=== PATIENT | female | born 1985 | race Two or more races ===

== ENCOUNTER 2021-07-05 23:49 | Emergency (ER) | payer MEDICAID, OTHER ==
[~2021-07-05] VITALS: Ht 162.6 cm; Wt 89.4 kg
[2021-07-06 01:48] LABS: Basophils # (auto) 0 10 ^3/uL (0-0.2); Basophils % (auto) 0.2 % (0.0-2.0); Eosinophils # (auto) 0 10 ^3/uL (0-0.8); Eosinophils % (auto) 0.3 % (0.0-7.0); Hematocrit 37.8 % (36.0-46.0); Hemoglobin 12.9 g/dL (12.2-16.2); Lymphocytes # (auto) 1.5 10 ^3/uL (0.4-5.4); Lymphocytes % (auto) 11.6 % (10.0-50.0); Mean Corpuscular Hemoglobin 29.2 pg (28.0-32.0); Mean Corpuscular Hgb Conc. 34.1 g/dL (32.0-36.0); Mean Corpuscular Volume 85.8 fL (80.0-100.0); Monocytes # (auto) 0.5 10 ^3/uL (0-1.3); Monocytes % (auto) 3.6 % (0.0-12.0); Neutrophils # (auto) 10.7 10 ^3/uL (1.6-8.6); Neutrophils % (auto) 84.3 % (37.0-80.0); Nucleated Red Blood Cells % 0.1 %; Red Cell Distribution Width 13.9 % (11.8-14.3); White Blood Cell 12.7 10^3/uL (4.4-10.8)
[2021-07-06 02:08] LABS: Albumin 3.7 g/dL (3.4-5.0); BUN/Creatinine Ratio 29.5; Potassium 4.7 mmol/L (3.5-5.1)
[2021-07-06 02:15] LABS: Bilirubin, Total 0.2 mg/dL (0.2-1.0)
[2021-07-06] MEDS ORDERED: MORPHINE SULFATE 4 MG/ML SYR/VIAL IV ONE (02:45)
[2021-07-06] MEDS ORDERED: ONDANSETRON HCL 4 MG/2 ML VIAL IV ONE (02:45)
[2021-07-06 03:32] LABS: Urine Bacteria FEW /hpf (None Seen); Urine Blood Negative /uL (Negative); Urine Specific Gravity 1.026 (1.001-1.035); Urine WBC 1 /hpf (0 - 5)
[2021-07-06 04:21] VITALS: BP 121/68
== END 2021-07-06 04:40 | disposition home or self-care (01) ==
LOC: ER 23:52
DX: R10.31 Right lower quadrant pain (principal); R10.11 Right upper quadrant pain; R11.2 Nausea with vomiting, unspecified; Z90.710 Acquired absence of both cervix and uterus
CPT/HCPCS: 36415; 74176; 80053; 81001; 83690; 84702; 85025; 96374; 96375; 99285; J2270; J2405

== ENCOUNTER 2022-06-09 20:28 | Emergency (ER) | payer MEDICAID ==
[~2022-06-09] VITALS: Ht 162.6 cm; Wt 92.2 kg
[2022-06-09 20:41] VITALS: BP 146/83
[2022-06-09 21:38] LABS: Basophils # (auto) 0 10 ^3/uL (0-0.2); Basophils % (auto) 0.2 % (0.0-2.0); Eosinophils # (auto) 0.2 10 ^3/uL (0-0.8); Eosinophils % (auto) 2.3 % (0.0-7.0); Hematocrit 39.7 % (36.0-46.0); Hemoglobin 13.4 g/dL (12.2-16.2); Lymphocytes # (auto) 2.8 10 ^3/uL (0.4-5.4); Lymphocytes % (auto) 29.5 % (10.0-50.0); Mean Corpuscular Hemoglobin 29.4 pg (28.0-32.0); Mean Corpuscular Hgb Conc. 33.7 g/dL (32.0-36.0); Mean Corpuscular Volume 87.1 fL (80.0-100.0); Monocytes # (auto) 0.6 10 ^3/uL (0-1.3); Monocytes % (auto) 6.2 % (0.0-12.0); Neutrophils % (auto) 61.8 % (37.0-80.0); Nucleated Red Blood Cells % 0.1 %; Red Blood Cells 4.56 10^6/uL (4.0-5.20); Red Cell Distribution Width 14.1 % (11.8-14.3); White Blood Cell 9.7 10^3/uL (4.4-10.8)
[2022-06-09 21:55] LABS: Albumin 3.8 g/dL (3.4-5.0); Calcium 9.4 mg/dL (8.5-10.1); Potassium 3.7 mmol/L (3.5-5.1)
[2022-06-09 22:01] LABS: BUN/Creatinine Ratio 35.5; Bilirubin, Total 0.2 mg/dL (0.2-1.0); Total Protein 8.6 g/dL (6.4-8.2)
== END 2022-06-10 05:23 | disposition home or self-care (01) ==
LOC: ER 20:28
DX: R79.89 Other specified abnormal findings of blood chemistry (principal); E86.0 Dehydration; Z90.710 Acquired absence of both cervix and uterus
CPT/HCPCS: 36415; 80053; 83690; 85025

== ENCOUNTER → 2023-11-02 | Outpatient (CLI) | payer MEDICAID ==
[~2023-11-02] VITALS: Ht 162.6 cm; Wt 83.9 kg
== END | disposition home or self-care (01) ==
LOC: Rad HDHVI 09:00
PROVIDERS: ATTEND Internal Medicine Cardiovascular Disease
DX: R00.1 Bradycardia, unspecified (principal); R06.02 Shortness of breath; R07.89 Other chest pain; R53.1 Weakness; R42 Dizziness and giddiness
CPT/HCPCS: 78452; 93017; 96374; A9500

== ENCOUNTER → 2023-11-21 | Outpatient (CLI) | payer MEDICAID | END | disposition home or self-care (01) | LOC: Rad HDHVI 12:35 | PROVIDERS: ATTEND Internal Medicine Cardiovascular Disease | DX: R06.02 Shortness of breath (principal) | CPT/HCPCS: 93306 ==

== ENCOUNTER → 2024-03-05 | Outpatient (CLI) | payer MEDICAID ==
[~2024-03-05] MED LIST: LACTCAP35 OR
[2024-03-05 10:15] VITALS: BP 131/83; PULSE 60; RESP 16; O2SAT 99
[2024-03-05 10:25] VITALS: BP 115/75; PULSE 62; RESP 16; O2SAT 99
--- NOTE | 2024-03-05 12:08 | DVH ---
EXAM: XY CHEST TWO VIEWS ROUTINE CLINICAL HISTORY: pain COMPARISON: None TECHNIQUE: Frontal and lateral view of the chest was obtained FINDINGS: Lines and Tubes: None Lungs: No focal consolidation. Pleura: No effusion. No pneumothorax. Cardiomediastinal contours: Unremarkable Bones: No acute osseous abnormality. IMPRESSION: No acute cardiopulmonary disease.
== END | disposition home or self-care (01) ==
LOC: Rad HDHVI 10:06
PROVIDERS: ATTEND Internal Medicine Cardiovascular Disease
DX: Z01.818 Encounter for other preprocedural examination (principal); R00.1 Bradycardia, unspecified
CPT/HCPCS: 71046; 93005; G0463

== ENCOUNTER 2024-03-08 06:54 | Day surgery (SDC) | payer MEDICAID ==
[2024-03-05 11:17] LABS: Basophils # (auto) 0 10 ^3/uL (0-0.2); Basophils % (auto) 0.4 % (0.0-2.0); Eosinophils # (auto) 0.1 10 ^3/uL (0-0.8); Eosinophils % (auto) 1.5 % (0.0-7.0); Hematocrit 39.3 % (36.0-46.0); Hemoglobin 13.3 g/dL (12.2-16.2); Lymphocytes # (auto) 1.7 10 ^3/uL (0.4-5.4); Lymphocytes % (auto) 22.5 % (10.0-50.0); Mean Corpuscular Hemoglobin 29.5 pg (28.0-32.0); Mean Corpuscular Hgb Conc. 33.8 g/dL (32.0-36.0); Mean Corpuscular Volume 87.2 fL (80.0-100.0); Monocytes # (auto) 0.4 10 ^3/uL (0-1.3); Monocytes % (auto) 4.8 % (0.0-12.0); Neutrophils # (auto) 5.3 10 ^3/uL (1.6-8.6); Neutrophils % (auto) 70.8 % (37.0-80.0); Platelet Count (auto) 299 10^3/uL (140-450); Red Blood Cells 4.51 10^6/uL (4.0-5.20); Red Cell Distribution Width 14.1 % (11.8-14.3); White Blood Cell 7.5 10^3/uL (4.4-10.8)
[2024-03-05 11:38] LABS: Alkaline Phosphatase 80 U/L (46-116); Anion Gap 7 (5-15); Blood Urea Nitrogen 9 mg/dL (9-23); Carbon Dioxide 25 mmol/L (20-31); Chloride 106 mmol/L (98-107); Glucose 97 mg/dL (74-106); Potassium 4.2 mmol/L (3.5-5.1); Sodium 138 mmol/L (136-145)
[2024-03-05 11:39] LABS: Aspartate Aminotransferase < 8 U/L (13-40)
[2024-03-05 11:40] LABS: Albumin 4.4 g/dL (3.2-4.8)
[2024-03-05 11:41] LABS: Alanine Aminotransferase 9 U/L (7-40); Bilirubin, Total 0.3 mg/dL (0.2-1.0); Total Protein 7.5 g/dL (5.7-8.2)
[2024-03-05 11:49] LABS: INR 1.03 (0.9-1.15); Prothrombin Time 10.9 sec (9.3-11.8)
[~2024-03-08] VITALS: Ht 162.6 cm; Wt 88.5 kg
[2024-03-08] MEDS ORDERED: VANCOMYCIN HCL 1000 MG VL ONE (09:29)
[2024-03-08] MEDS ORDERED: LIDOCAINE 2%HCL (LOCAL ANESTH.) INJ 20ML MDV ONE ×2 (09:29→10:04)
[2024-03-08] MEDS ORDERED: fentaNYL CITRATE 100 MCG/2 ML VL ONE (09:29)
[2024-03-08] MEDS ORDERED: MIDAZOLAM HCL 2MG/2ML 2ml VIAL (1mg/ml) ONE (09:29)
[2024-03-08] MEDS ORDERED: VANCOMYCIN 1GM/250ML KIT 250 ML IV ONE (09:29)
--- NOTE | 2024-03-08 11:22 | DVH ---
EXAM: XY CHEST PORTABLE Indication: S/P PACEMAKER Technique: Single frontal view of the chest was obtained Comparison: None FINDINGS: Lines and Tubes: Cardiac pacemaker projects over left chest wall. Lungs: No focal consolidation. Pleura: No effusion. No pneumothorax. Cardiomediastinal contours: Unremarkable Bones: No acute osseous abnormality. IMPRESSION: No acute cardiopulmonary disease.
--- NOTE | 2024-03-16 14:58 | DVHOP ---
DATE OF SURGERY: 03/08/2024 PROCEDURES PERFORMED: * Dual chamber permanent pacemaker. * Venography. * Conscious sedation. DESCRIPTION OF PROCEDURE: The patient was prepped and draped in a sterile condition. 1% Xylocaine used to anesthetize the left subclavicular region. Using a Cook needle, the left subclavian vein was engaged with Seldinger technique, a guidewire was then appropriately positioned. Using a 10 blade, linear incision was made using blunt dissection, electrocautery, pocket was then dissected out. Using a 9-Turkmen peel-away sheath, right ventricular active fixation lead then appropriately positioned, threshold parameters obtained, lead was secured to the chest wall using 0 Ethibond. Then, using a 7-Turkmen peel-away sheath, right atrial active fixation lead then appropriately positioned. Threshold parameters obtained, lead was secured to the chest wall using 0 Ethibond. Generator was implanted. Pocket was irrigated using vancomycin saline solution and pocket was closed using a 3-0 Monoderm subcutaneous sutures followed by 3-0 Monoderm subcuticular sutures. There were no complications. The patient tolerated the procedure well. RESULTS: The patient had Edora 8 DR-T, model #113866, serial #[id number] Biotronik generator. RV lead is Biotronik Solia S53, model #039502, serial #[id number]. Atrial lead is Biotronik Solia S45, model #444492, serial #[id number]. Threshold parameters atrium, P-wave amplitude of 1.9 millivolts, threshold of 0.8 volts at 0.4 milliseconds pulse duration, pacing impedance of 550 ohms. Right ventricular lead, R-wave amplitude of 8.2 millivolts, threshold of 0.5 volts at 0.4 milliseconds pulse duration, pacing impedance of 625 ohms. CONCLUSION: The patient with successful implantation of dual-chamber permanent pacemaker, Biotronik MRI compatible system. Jerzy Arora MD SA/BRITT TID: [id number] RECEIPT: [id number]
--- NOTE | 2024-03-16 15:12 | DVHDS ---
DATE OF DISCHARGE: 03/08/2024 DISCHARGE DIAGNOSES: The patient with sick sinus syndrome, marked bradycardia, syncope, now underwent successful dual chamber permanent pacemaker implantation. HOSPITAL COURSE: The patient is now being discharged home on antibiotics. Follow up with me in 1 week. He will have a chest x-ray in a.m. Stable at the time of discharge. DISPOSITION: Home. ACTIVITY: As instructed. DIET: Will be 2 g sodium diet. Jerzy Arora MD SA/BRITT TID: [id number] RECEIPT: [id number]
--- NOTE | 2024-03-16 23:23 | DVHHP ---
ADMIT DATE: 03/08/2024 HISTORY OF PRESENT ILLNESS: The patient is 38 years old who presented with signs and symptom complex of increasing lethargy and fatigue. It appears as though the patient was having marked bradycardia pauses by telemonitor. PERTINENT MEDICAL HISTORY: Significant for history of tobacco use, but quit vaping about 6 months ago. She has no history of hypertension, no history of hyperlipidemia. No history of previous myocardial infarction, no family history of coronary artery disease. No CVA. No peripheral vascular disease. No lung disease. No cardiac arrest. No previous history of coronary artery disease. No diabetes. She is not on any renal failure or on hemodialysis. No history of any congestive heart failure symptoms. The patient currently on no medications whatsoever, but she had marked bradycardia with requiring permanent pacemaker implantation with pauses greater than 3 seconds with symptoms. PHYSICAL EXAMINATION: VITAL SIGNS: Blood pressure is 134/80, pulse of 70, O2 saturation 98% on room air. HEENT: Pupils are reactive. Funduscopic exam is benign. Sclerae anicteric. Oral mucosa moist. Posterior pharynx without any exudates. No papilledema. No JVD appreciated. NECK: No cervical adenopathy noted. PULMONARY: Clear to auscultation. CARDIOVASCULAR: Regular rate without S3, without S4. PMI is not displaced. ABDOMEN: Soft, nontender, normal bowel sounds. SKIN: Unremarkable. EXTREMITIES: Unremarkable. ASSESSMENT AND PLAN: Thus, the patient with signs and symptom complex of marked bradycardia. Now to undergo permanent pacemaker implantation. Further recommendations after the permanent pacemaker. Jerzy Arora MD SA/YULY/DAISY TID: [id number] RECEIPT: [id number]
--- NOTE | 2024-03-19 11:08 | ECG ---
[facility] Test Date: 2024-03-08 Test Time: 11:08:48 Pat Name: ESTRELLITA RODRIGUEZ Department: Room: Gender: F [employer] Machine Setter: AMANDEEP : 1985 Requested By: SHELDON ALTAMIRANO Order Number: [id number] Reading MD: Bassam Manrique Measurements Intervals Dorothy Rate: 60 P: 32 UT: 140 QRS: 20 QRSD: 78 T: 20 QT: 414 QTc: 414 Interpretive Statements Electronic atrial pacemaker Electronically Signed On 03-19-2024 11:29:32 PST by Bassam Manrique Please click the below link to view image of tracing.
== END 2024-03-08 12:45 | disposition home or self-care (01) ==
LOC: CATH 06:54
PROVIDERS: ATTEND Internal Medicine Cardiovascular Disease
DX: I44.30 Unspecified atrioventricular block (principal); R00.1 Bradycardia, unspecified; I10 Essential (primary) hypertension; Z90.710 Acquired absence of both cervix and uterus; Z87.891 Personal history of nicotine dependence
CPT/HCPCS: 33208; 36415; 71045; 80053; 84702; 85025; 85610; 85730; 93005; C1785; J2250; J3010; J3370; 99152; 99153

== ENCOUNTER → 2024-03-09 | Outpatient (CLI) | payer MEDICAID ==
--- NOTE | 2024-03-09 13:58 | DVH ---
XY CHEST TWO VIEWS ROUTINE CLINICAL HISTORY: POST OP SOB COMPARISON: XY CHEST TWO VIEWS ROUTINE on DOS: 03/05/24 TECHNIQUE: Frontal and lateral view of the chest was obtained FINDINGS: Lines and Tubes: Left pacemaker. Lungs: No focal consolidation. Pleura: No effusion. No pneumothorax. Cardiomediastinal contours: Unremarkable Bones: No acute osseous abnormality. IMPRESSION: No acute cardiopulmonary disease.
== END | disposition home or self-care (01) ==
LOC: Rad HDHVI 12:14
PROVIDERS: ATTEND Internal Medicine Cardiovascular Disease
DX: R06.02 Shortness of breath (principal)
CPT/HCPCS: 71046

== ENCOUNTER → 2024-03-27 | Outpatient (CLI) | payer MEDICAID ==
--- NOTE | 2024-03-27 11:25 | DVH ---
EXAM: XY CHEST TWO VIEWS ROUTINE CLINICAL HISTORY: CHEST PAIN COMPARISON: XY CHEST TWO VIEWS ROUTINE on DOS: 03/09/24, XY CHEST TWO VIEWS ROUTINE on DOS: 03/05/24 TECHNIQUE: Frontal and lateral view of the chest was obtained FINDINGS: Lines and Tubes: Dual lead pacer in the left chest wall. Lungs: No focal consolidation. Pleura: No effusion. No pneumothorax. Cardiomediastinal contours: Unremarkable Pulmonary vasculature: Within normal limits. Bones: No acute osseous abnormality. IMPRESSION: 1. No acute cardiopulmonary disease. HS:Y
== END | disposition home or self-care (01) ==
LOC: Rad HDHVI 11:02
PROVIDERS: ATTEND Internal Medicine Cardiovascular Disease
DX: R07.89 Other chest pain (principal)
CPT/HCPCS: 71046

== ENCOUNTER 2024-10-13 13:48 | Emergency (ER) | payer MEDICAID ==
[~2024-10-13] VITALS: Ht 162.6 cm; Wt 89.4 kg
[2024-10-13 14:11] VITALS: BP 131/76; PULSE 60; RESP 16; TEMP 98.2; O2SAT 99
== END 2024-10-13 17:44 | disposition left against medical advice (07) ==
LOC: ER 13:48
DX: H92.01 Otalgia, right ear (principal); R51.9 Headache, unspecified; Z53.21 Procedure and treatment not carried out due to patient leaving prior to being seen by health care provider

== ENCOUNTER 2024-10-15 09:12 | Emergency (ER) | payer MEDICAID ==
[~2024-10-15] VITALS: Ht 162.6 cm; Wt 89.7 kg
[2024-10-15 09:20] VITALS: BP 152/92; PULSE 60; RESP 16; TEMP 98.2; O2SAT 99
[2024-10-15] MEDS: methylPREDNISolone SOD SUCC 125 MG/2 ML VL IM ONE (09:34)
[2024-10-15] MEDS: KETOROLAC TROMETH 30 MG/ML 1ML VIAL IM ONE (09:35)
--- NOTE | 2024-10-15 09:43 | ED.PDOC ---
Eye-HPI HPI Comments A 39year-old female presents to the ED with a chief complaint of right sided facial pain as of X1 week ago (10/08/24). Patient states that with associated right sided facial pain, she is experiencing heaviness, with pain radiating to the right shoulder/arm. Patient states pain is moderate, and has been intermittent throughout each day since symptoms began to occur. Patient additionally reports taking about 200mg of Tylenol daily with some alleviating f actors noted. Patient states she saw the dentist in regards to the pain and was told to come to the ER with no reported infection of the mouth. Patient has no further complaints at this time and otherwise denies further associated symptoms of double vision, migraine, chest pain, N/V, neck pain, or fever. Chief Complaint: Face pain Time Seen by MD: 09:26 Primary Care Provider: UNKNOWN Reviewed Notes: Nurses Notes, Medications, Allergies Allergies: Coded Allergies: NO KNOWN ALLERGIES (Unverified , 03/05/24) Home Meds Active Scripts Ibuprofen (Ibuprofen) 600 Mg Tab, 1 TAB PO TID for 10 Days, #30 TAB 0 Refills Prov:MARC SALDIVAR ADVANCED PRACTICE PROVIDER 10/15/24 Methocarbamol (Methocarbamol) 500 Mg Tab, 500 MG PO Q8HP PRN for 10 Days, #30 TAB 0 Refills Prov:MARC SALDIVAR ADVANCED PRACTICE PROVIDER 10/15/24 Reported Medications Lactobacillus (PROBIOTIC) Cap, 1 OR DAILY for SUPPLEMENT, CAP 03/05/24 Information Source: Patient Mode of Arrival: Ambulatory Timing: Days (6) Duration: Since onset Prehospital treatment: None Quality: Pain Lids: Normal Conjunctiva: Normal Cornea: Normal Pupils: Normal EOM: Normal Fundus: Normal Slit lamp exam: Normal Anterior chamber: Normal Mouth: Normal ENT Ear Exam: Normal Nose: Normal Sinuses: Normal Oropharynx: Normal Onset: Spontaneous Throat Exposed to: None History of: None Last Tetanus: UTD Modifying factors: Nothing Associated signs and symptoms: Other (Right sided facial pain radiating to right arm/shoulder ) Past Medical History PAST MEDICAL HISTORY: Denies Surgical History: Hysterectomy WORK CHECKER History: Denies all WORK CHECKER Hx Family History Family History: Reviewed,noncontributory to illness Social History Smoker: Non-Smoker Alcohol: Denies ETOH Use Drugs: Denies Drug Use Lives In: Home Constitutional: denies: chills, diaphoresis, fatigue, fever, malaise, sweats, weakness, others EENTM: reports: others (PER HPI ); denies: blurred vision, double vision, ear bleeding, ear discharge, ear drainage, ear pain, ear ringing, eye pain, eye redness, hearing loss, mouth pain, mouth swelling, nasal discharge, nose bleeding, nose congestion, nose pain, photophobia, tearing, throat pain, throat swelling, voice changes Respiratory: denies: cough, hemoptysis, orthopnea, SOB at rest, shortness of breath, SOB with excertion, stridor, wheezing, others Cardiovascular: denies: chest pain, dizzy spells, diaphoresis, Dyspnea on exertion, edema, irregular heart beat, left arm pain, lightheadedness, palpitations, PND, syncope, others Gastrointestinal: denies: abdomen distended, abdominal pain, blood streaked bowels, constipated, diarrhea, dysphagia, difficulty swallowing, hematemesis, melena, nausea, poor appetite, poor fluid intake, rectal bleeding, rectal pain, vomiting, others Genitourinary: denies: abnormal vagina bleeding, burning, dyspareunia, dysuria, flank pain, frequency, hematuria, incontinence, pain, , vagina discharge, urgency, others Neurological: denies: dizziness, fainting, headache, left sided numbness, left sided weakness, numbness, paresthesia, pre-existing deficit, right sided numbness, right sided weakness, seizure, speech problems, tingling, tremors, weakness, others Musculoskeletal: denies: back pain, gout, joint pain, joint swelling, muscle pain, muscle stiffness, neck pain, others Integumetry: denies: bruises, change in color, change in hair/nails, dryness, laceration, lesions, lumps, rash, wounds, others Allergic/Immunocompromised: denies: Difficulty Healing, Frequent Infections, Hives, Itching, others Hematologic/Lymphatic: denies: anemia, blood clots, easy bleeding, easy bruising, swollen glands, others Endocrine: denies: excessive hunger, excessive sweating, excessive thirst, excessive urination, flushing, intolerance to cold, intolerance to heat, unexplained weight gain, unexplained weight loss, others Psychiatric: denies: anxiety, bipolar disorder, depression, hopeless, panic disorder, schizophrenia, sleepless, suicidal, others All Other Systems: Reviewed and Negative Physical Exam General Appearance: No Apparent Distress, Normal HEENT: Normal ENT Inspection, Pharynx Normal, TMs Normal Neck: Full Range of Motion, Non-Tender, Normal, Normal Inspection Respiratory: Chest Non-Tender, Lungs Clear, No Accessory Muscle Use, No Respiratory Distress, Normal Breath Sounds Cardiovascular: No Edema, No JVD, No Murmur, No Gallop, Normal Peripheral Pulses, Regular Rate/Rhythm Breast Exam: Deferred Gastrointestinal: No Organomegaly, Non Tender, No Pulsatile Mass, Normal Bowel Sounds, Soft Genitalia: Deferred Pelvic: Deferred Rectal: Deferred Extremities: No calf tenderness, Normal capillary refill, Normal inspection, Normal range of motion, Non-tender, No pedal edema Musculoskeletal : Apperance: Normal Neurologic: Alert, ice seller II-XII nml as Tested, No Motor Deficits, Normal Affect, No Sensory Deficits Cerebellar Function: Normal Reflexes: Normal Skin: Dry, Normal Color, Warm Lymphatic: No Adenopathy Was a procedure done? Was a procedure done?: No EENT DIFF Eye: Other Ear: Perforation, Dental, Pharyngitis Mouth: Immunodeficiency X-Ray, Labs, Meds, VS Vital Signs Date Time Temp Pulse Resp B/P (MAP) Pulse Ox O2 Delivery O2 Flow Rate FiO2 10/15/24 09:20 98.2 60 16 152/92 (112) 99 98.2 10/15/24 09:20 98.2 60 16 152/92 (112) 99 98.2 Lab Test 10/15/24 09:35 10/15/24 09:00 Range/Units White Blood Count 7.1 4.4-10.8 10^3/uL Red Blood Count 5.01 4.0-5.20 10^6/uL Hemoglobin 14.5 12.2-16.2 g/dL Hematocrit 42.6 36.0-46.0 % Mean Corpuscular Volume 85.0 80.0-100.0 fL Mean Corpuscular Hemoglobin 28.9 28.0-32.0 pg Mean Corpuscular Hemoglobin Concent 34.0 32.0-36.0 g/dL Red Cell Distribution Width 14.8 H 11.8-14.3 % Platelet Count 337 140-450 10^3/uL Mean Platelet Volume 7.8 6.9-10.8 fL Neutrophils (%) (Auto) 63.4 37.0-80.0 % Lymphocytes (%) (Auto) 29.4 10.0-50.0 % Monocytes (%) (Auto) 4.8 0.0-12.0 % Eosinophils (%) (Auto) 1.9 0.0-7.0 % Basophils (%) (Auto) 0.5 0.0-2.0 % Neutrophils # (Auto) 4.5 1.6-8.6 10 ^3/uL Lymphocytes # (Auto) 2.1 0.4-5.4 10 ^3/uL Monocytes # (Auto) 0.3 0-1.3 10 ^3/uL Eosinophils # (Auto) 0.1 0-0.8 10 ^3/uL Basophils # (Auto) 0 0-0.2 10 ^3/uL Nucleated Red Blood Cells 0.1 % Erythrocyte Sedimentation Rate 54 H 0-20 mm/hr Sodium Level 138 136-145 mmol/L Potassium Level 3.8 3.5-5.1 mmol/L Chloride Level 105 98-107 mmol/L Carbon Dioxide Level 25 20-31 mmol/L Anion Gap 8 5-15 Blood Urea Nitrogen 12 9-23 mg/dL Creatinine 0.70 0.550-1.02 mg/dL Glomerular Filtration Rate Calc 112 >90 mL/min BUN/Creatinine Ratio 17.1 10.0-20.0 Serum Glucose 87 74-106 mg/dL Calcium Level 10.3 8.7-10.4 mg/dL C-Reactive Protein High Sensitivity 0.92 <1.0 mg/dL Urine Color Light-yellow Yellow Urine Clarity Turbid H Clear Urine pH 5.0 5.0-9.0 Urine Specific [place] 1.012 1.001-1.035 Urine Protein Negative Negative Urine Ketones Negative Negative Urine Blood Negative Negative /uL Urine Nitrite Negative Negative Urine Bilirubin Negative Negative Urine Urobilinogen Normal Negative mg/dL Urine Leukocyte Esterase Negative Negative /uL Urine RBC 1 0 - 4 /hpf Urine Microscopic WBC 2 0-5 /HPF Urine Squamous Epithelial Cells Few <5 /hpf Urine Bacteria Few H None Seen /hpf Urine Glucose Normal Normal mg/dL Current Medications Medications (Trade) Dose Ordered Sig/Alma Route Start Time Stop Time Status Last Admin Ketorolac Tromethamine (Toradol Injection) 30 mg ONCE ONCE IM 10/15/24 09:30 10/15/24 09:31 DC 10/15/24 09:35 Methylprednisolone Sodium Succinate (Solu Medrol) 125 mg ONCE ONCE IM 10/15/24 09:30 10/15/24 09:31 DC 10/15/24 09:34 EXAM: CT HEAD WITHOUT CONTRAST INDICATION: r/o ischemia, hemorrage, serious pathology TECHNIQUE: CT of the head without intravenous contrast. Coronal and sagittal reformatted images are submitted. Radiation Dose : 1. Head: CT Dose: CTDI volume is 53.49 mGy. Dose-length product is 979.65 mGy*cm The dose indicators for CT are the volume Computed Tomography (CT) Dose Index (CTDIvol) and the Dose Length Product (DLP), and are measured in units of mGy and mGy-cm, respectively. These indicators are not patient dose, but values generated from the CT scanner acquisition factors. The report includes radiation exposure data for exposures received during this examination. All CT scans at this medical facility are performed using dose modulation techniques as appropriate to a performed exam including the following: Automated exposure control was utilized; adjustment of the MA and/or KV according to patient size; and use of iterative reconstruction technique. COMPARISON: None FINDINGS: There is no evidence of acute intracranial hemorrhage, extra-axial collection, mass effect, midline shift, herniation or hydrocephalus. The ventricles, sulci and cisterns are age appropriate. The burroughs-white differentiation is intact. The visualized paranasal sinuses and mastoid air cells are clear. No depressed calvarial fracture. The surrounding soft tissues are unremarkable. IMPRESSION: 1. No evidence of acute intracranial abnormality. X-Ray, Labs, Meds, VS Comment A 39year-old female presents to the ED with a chief complaint of right sided facial pain as of X1 week ago (10/08/24). Patient arrives alert and oriented, ABC's intact, afebrile, vital signs stable, saturating well in room air Peripheral IV insertion+ labs were ordered. CBC was ordered to exclude anemia, blood loss, or infection. BMP was ordered to exclude electrolyte abnormalities, renal failure, dehydration, hyperglycemia Urinalysis was ordered to rule out UTI or hematuria. Diagnostic imaging of Head CT without Contrast was ordered by me and results interpreted by radiology : No evidence of acute intracranial abnormality. Patient was given: Toradol Injection 30MG/ML and Solu Medrol 125MG/2 ML. Tolerated medications with no adverse reaction. Low concern for meningitis as there are no signs of fever, altered mentation nor neck stiffness. Brudzinski/Kernig negative. Low concern for subarachnoid hemorrhage there are no signs of a thunderclap headache Low concern for subdural hematoma and intracranial hemorrhage as there is no history of trauma, progressively worsening headache and neuroexam is unremarkable. Low suspicion for brain tumor as neuroexam is unremarkable. No nausea vomiting. No morning or nocturnal headache. No suspicion for temporal arteritis as there are no signs of fever, muscle weakness, jaw claudication, no transient visual loss. Patient was overall well-appearing and hemodynamically stable in the ED. They were able to ambulate and continued to have a nonfocal exam in the emergency department. Discussed continued symptomatic treatment at home. Recommended follow up with PCP. Return precautions to the ED discussed Avoid prolonged periods of fasting Drink plenty of water Exercise daily, limit screen time Aim to sleep 8 to 9 hours per night, practice good hygiene ED precautions given Patient is stable for discharge at this time. External notes reviewed. Test results and diagnostic imaging interpreted. All diagnostic findings, discharge care, education and instructions provided Follow-up with PCP in 2 to 3 days Patient verbalized understanding and agreed to treatment plan Vital signs stable, afebrile, no acute distress noted Patient ambulatory with strong steady gait Advised to return precautions for any new or worsening symptoms, return to ER immediately for re-evaluation Patient is aware that the purpose of this visit was for an acute medical emergency requiring emergent stabilization. Chronic conditions, including malignancies have not been ruled out. Patient is instructed to follow up with PCP as directed and discharge instructions for continued care and workup. If unable to arrange follow-up, patient is to return to the emergency department for reassessment. Patient (parent or legal guardian if applicable) was given verbal and written discharge instructions and acknowledges understanding. Additional MDM Review of External, Non-ED records: External records reviewed. Discussion with independent historian (EMS, family) history obtained from the patient/parents (if applicable) at bedside Chronic conditions affecting care: None Social determinants of health affecting care: None Discussion with the Radiology: No Tests considered but not performed: Prescription medication considered but not given: Time of 1ST Reevaluation: 10:00 Reevaluation 1ST: Unchanged Patient Education/Counseling: Diagnosis, Treatment Family Education/Counseling: No Family Present SEPSIS Sepsis Screen Date sepsis recognized/suspect: Oct 15, 2024 Time Sepsis recognized/suspect: 915 Recent Procedure: No On Antibiotic Therapy: No Respiratory Rate >20: No Heart Rate >90: No Temp<36 C (96.8 F) or >38.3 C: No SBP <90 or MAP <65 mmHG: No New Acute Mental Status Change: No Is the patient on CPAP, BIPAP,: No Physician Orders Head Without Contrast (10/15/24 09:26) Vital Signs Date Time Temp Pulse Resp B/P (MAP) Pulse Ox O2 Delivery O2 Flow Rate FiO2 10/15/24 09:20 98.2 60 16 152/92 (112) 99 98.2 10/15/24 09:20 98.2 60 16 152/92 (112) 99 98.2 Laboratory Tests Test 10/15/24 09:35 White Blood Count 7.1 10^3/uL (4.4-10.8) Medications Medications Dose Ordered Sig/Alma Route Start Time Stop Time Status Last Admin Dose Admin Ketorolac Tromethamine 30 mg ONCE ONCE IM 10/15/24 09:30 10/15/24 09:31 DC 10/15/24 09:35 Methylprednisolone Sodium Succinate 125 mg ONCE ONCE IM 10/15/24 09:30 10/15/24 09:31 DC 10/15/24 09:34 Departure 1 Departure Time of Disposition: 10:51 Impression: Primary Impression: Face pain Disposition: HOME / SELF CARE / HOMELESS Condition: Stable Additional Instructions: Discharge Note: Continue on your medications. Drink plenty of fluids. Follow up with your primary Dr. Take your prescriptions as ordered. If your condition becomes worse call and follow up with your primary Dr. for instructions or return to the ER if needed. Thank you for visiting [facility]. e-Prescriptions Ibuprofen (Ibuprofen) 600 Mg Tab 1 TAB PO TID for 10 Days, #30 TAB 0 Refills Prov: MARC SALDIVAR ADVANCED PRACTICE PROVIDER 10/15/24 Methocarbamol (Methocarbamol) 500 Mg Tab 500 MG PO Q8HP PRN for 10 Days, #30 TAB 0 Refills Prov: MARC SALDIVAR ADVANCED PRACTICE PROVIDER 10/15/24 Discharged With: Self Critical Care Note Critical Care Time?: No Stability Stability form required: No Heart Score Heart Score: Heart Score Response (Comments) Value History N/A 0 EKG N/A 0 Age N/A 0 Risk Factors N/A 0 Troponin N/A 0 Total 0 I personally scribed for MARC SALDIVAR F ADVANCED PRACTICE PROVIDER ([email or web address]) on 10/15/24 at 09:43. Electronically submitted by Lucita Johns ([email or web address]). I personally scribed for MARC SALDIVAR F ADVANCED PRACTICE PROVIDER ([email or web address]) on 10/15/24 at 10:12. Electronically submitted by Lucita Johns ([email or web address]). I personally scribed for CHAITANYA SALDIVARO F ADVANCED PRACTICE PROVIDER (DVAYOMA) on 10/15/24 at 10:14. Electronically submitted by Lucita Johns ([email or web address]). I personally scribed for CHAITANYA SALDIVARO F ADVANCED PRACTICE PROVIDER (DVAYOMA) on 10/15/24 at 10:15. Electronically submitted by Lucita Johns ([email or web address]). I personally scribed for CHAITANYA SALDIVARO F ADVANCED PRACTICE PROVIDER (DVAYOMA) on 10/15/24 at 10:16. Electronically submitted by Lucita Johns ([email or web address]). CHAITANYA SALDIVARO F ADVANCED PRACTICE PROVIDER Oct 15, 2024 09:43
[2024-10-15 09:46] LABS: Urine Protein, UAD Negative (Negative)
[2024-10-15 09:55] LABS: Hematocrit 42.6 % (36.0-46.0); Hemoglobin 14.5 g/dL (12.2-16.2); Mean Corpuscular Hemoglobin 28.9 pg (28.0-32.0); Mean Corpuscular Volume 85.0 fL (80.0-100.0); Nucleated Red Blood Cells % 0.1 %
[2024-10-15 09:59] LABS: Chloride 105 mmol/L (98-107); Potassium 3.8 mmol/L (3.5-5.1); Sodium 138 mmol/L (136-145)
[2024-10-15 10:01] LABS: Anion Gap 8 (5-15); Calcium 10.3 mg/dL (8.7-10.4); Carbon Dioxide 25 mmol/L (20-31)
[2024-10-15 10:06] LABS: BUN/Creatinine Ratio 17.1 (10.0-20.0); Blood Urea Nitrogen 12 mg/dL (9-23); Glucose 87 mg/dL (74-106)
--- NOTE | 2024-10-15 10:10 | DVH ---
EXAM: CT HEAD WITHOUT CONTRAST INDICATION: r/o ischemia, hemorrage, serious pathology TECHNIQUE: CT of the head without intravenous contrast. Coronal and sagittal reformatted images are s ubmitted. Radiation Dose : 1. Head: CT Dose: CTDI volume is 53.49 mGy. Dose-length product is 979.65 mGy*cm The dose indicators for CT are the volume Computed Tomography (CT) Dose Index (CTDIvol) and the Dose Length Product (DLP), and are measured in units of mGy and mGy-cm, respectively. These indicators are not patient dose, but values generated from the CT scanner acquisition factors. The report includes radiation exposure data for exposures received during this examination. All CT scans at this medical facility are performed using dose modulation techniques as appropriate to a performed exam including the following: Automated exposure control was utilized; adjustment of the MA and/or KV according to patient size; and use of iterative reconstruction technique. COMPARISON: None FINDINGS: There is no evidence of acute intracranial hemorrhage, extra-axial collection, mass effect, midline s hift, herniation or hydrocephalus. The ventricles, sulci and cisterns are age appropriate. The burroughs-white differentiation is intact. The visualized paranasal sinuses and mastoid air cells are clear. No depressed calvarial fracture. The surrounding soft tissues are unremarkable. IMPRESSION: 1. No evidence of acute intracranial abnormality.
[2024-10-15] MEDS ORDERED: METH-1181 PO (10:52)
[2024-10-15] MEDS ORDERED: IBUP-1454 PO (10:52)
== END 2024-10-15 10:58 | disposition home or self-care (01) ==
LOC: ER 09:12
DX: R51.9 Headache, unspecified (principal); Z90.710 Acquired absence of both cervix and uterus
CPT/HCPCS: 36415; 70450; 80048; 81001; 85025; 85652; 86141; 96372; 99285; J1885; J2919